=== PATIENT | female | born 1940 | race Caucasian/White ===

== ENCOUNTER → 2017-12-20 | Outpatient (CLI) | payer MEDICARE, OTHER ==
[~2017-12-20] MED LIST: AMLODIPINE BESYL5 MG PO; ASPIRIN EC81 MG PO; DYAZIDE 37.5-21 EACH PO; Flonase; HYDROCODON-ACE1 EA15 PO; INDOCIN25 MG/5 ML PO; K-TAB10 MEQ PO; LIPITOR10 MG PO; LOVASTATIN40 MG PO; NORVASC5 MG PO; PANTOPRAZOLE SO20 MG; PANTOPRAZOLE SO40 MG PO; PLAVIX75 MG PO; SINGULAIR10 MG PO; TRIAMTERENE-HCTZ1 EA PO; ZETIA10 MG PO
== END ==
LOC: RAD 12:02
PROVIDERS: ATTEND Specialist
DX: M79.661 Pain in right lower leg (principal); R60.9 Edema, unspecified
CPT/HCPCS: 93971

== ENCOUNTER 2018-01-14 14:57 | Outpatient (RCR) | payer MEDICARE, OTHER | END 2018-01-19 | LOC: PT 14:57 | PROVIDERS: ATTEND Specialist | DX: M17.11 Unilateral primary osteoarthritis, right knee (principal); M25.561 Pain in right knee; M25.661 Stiffness of right knee, not elsewhere classified; R26.2 Difficulty in walking, not elsewhere classified; M62.81 Muscle weakness (generalized) ==

== ENCOUNTER 2018-01-30 13:56 | Outpatient (RCR) | payer MEDICARE, OTHER | END 2018-02-18 | LOC: PT 13:56 | PROVIDERS: ATTEND Specialist | DX: M17.11 Unilateral primary osteoarthritis, right knee (principal) | CPT/HCPCS: 97139 ==

== ENCOUNTER 2018-05-22 14:26 | Observation (INO) | payer MEDICARE, OTHER ==
[~2018-05-22] VITALS: Ht 165.1 cm; Wt 83.9 kg
[2018-05-22 15:11] LABS: BASOPHILS % 0.3 % (0.0-1.0); EOSINOPHILS # (AUTO) 0.1 (0.0-0.4); EOSINOPHILS % 1.2 % (0.0-6.0); HEMOGLOBIN 13.2 g/dL (12.0-16.0); LYMPHOCYTES # (AUTO) 1.9 (1.0-3.2); LYMPHOCYTES % 27.8 % (18.0-39.1); MEAN CORPUSCULAR HEMOGLOBIN 28.5 pg (28-32); MEAN CORPUSCULAR HGB CONC 32.2 g/dL (31-35); MEAN CORPUSCULAR VOLUME 88.6 fL (81-99); MONOCYTES # (AUTO) 0.3 (0.2-0.8); MONOCYTES % 4.8 % (4.4-11.3); NEUTROPHILS # (AUTO) 4.6 (2.1-6.9); NEUTROPHILS % 65.6 % (38.7-80.0); PLATELET COUNT 239 x10e3/uL (140-360); RED BLOOD COUNT 4.63 x10e6/uL (3.6-5.1); RED CELL DISTRIBUTION WIDTH 13.5 % (11.7-14.4)
[2018-05-22 15:16] LABS: INR 0.91; PROTHROMBIN TIME 11.5 seconds (11.9-14.5)
[2018-05-22 15:17] LABS: PARTIAL THROMBOPLASTIN TIME 26.8 seconds (23.8-35.5)
[2018-05-22 15:18] LABS: CLARITY,URINE SL CLOUDY (CLEAR); COLOR,URINE YELLOW (YELLOW)
[2018-05-22 15:19] LABS: BILIRUBIN,URINE NEGATIVE (NEGATIVE); KETONES,URINE NEGATIVE (NEGATIVE); LEUKOCYTE ESTERASE ,URINE NEGATIVE (NEGATIVE); NITRITE,URINE NEGATIVE (NEGATIVE); PROTEIN,URINE DIPSTICK NEGATIVE (NEGATIVE); URINE UROBILINOGEN 0.2 mg/dL (0.2 - 1)
[2018-05-22 15:25] LABS: ALBUMIN 3.8 g/dL (3.5-5.0); ANION GAP 16.6 mmol/L (8-16); CALCIUM 9.4 mg/dL (8.4-10.2); CREATININE, SERUM 1.17 mg/dL (0.57-1.11); POTASSIUM 3.6 mmol/L (3.5-5.1)
[2018-05-22 15:28] LABS: EPITHELIAL CELLS,URINE RARE /LPF; RBC,URINE 0-5 /HPF (0-5)
[2018-05-22 15:31] LABS: CREATINE KINASE MB 1.5 ng/mL (0-5.0)
--- NOTE | 2018-05-22 15:46 | Diagnostic Imaging Report ---
PROCEDURE: A single AP view of the chest. COMPARISON: 08/06/16 INDICATIONS: CHEST PAIN LEFT SIDE TODAY FINDINGS: Lines/tubes: None. Lungs: The lungs are well inflated and clear. There is no evidence of pneumonia or pulmonary edema. Pleura: There is no pleural effusion or pneumothorax. Heart and mediastinum: The heart and the mediastinum are unremarkable. Bones: No acute bony abnormality. IMPRESSION: No acute cardiopulmonary disease. Dictated by: Michael Mancia M.D. on 05/22/2018 at 15:51 Electronically approved by: Michael Mancia M.D. on 05/22/2018 at 15:51
[2018-05-22] MEDS ORDERED: MORPHINE SULFATE 2 MG/ML SYR IV PRN (17:30)
[2018-05-22] MEDS ORDERED: ONDANSETRON HCL INJ 2 MG/ML VIAL IV PRN (17:30)
[2018-05-22] MEDS ORDERED: ASPIRIN 81 MG CHEW TAB PO ONE (17:30)
[2018-05-22 20:14] VITALS: BP_SYST 121; BP_SYST 136; BP_DIAS 58; BP_DIAS 64
[2018-05-22 20:17] VITALS: BP 121/58
[2018-05-22 20:22] VITALS: BP 121/58
[2018-05-23] VITALS: BP 111/56
[2018-05-23 01:07] LABS: CREATINE KINASE MB 1.1 ng/mL (0-5.0)
[2018-05-23 04:00] VITALS: BP 115/56
[2018-05-23 05:34] LABS: BASOPHILS % 0.6 % (0.0-1.0); EOSINOPHILS # (AUTO) 0.1 (0.0-0.4); EOSINOPHILS % 2.3 % (0.0-6.0); HEMATOCRIT 37.7 % (34.2-44.1); HEMOGLOBIN 12.1 g/dL (12.0-16.0); LYMPHOCYTES # (AUTO) 1.6 (1.0-3.2); LYMPHOCYTES % 34.6 % (18.0-39.1); MEAN CORPUSCULAR HEMOGLOBIN 28.2 pg (28-32); MEAN CORPUSCULAR HGB CONC 32.1 g/dL (31-35); MEAN CORPUSCULAR VOLUME 87.9 fL (81-99); MONOCYTES # (AUTO) 0.4 (0.2-0.8); MONOCYTES % 8.2 % (4.4-11.3); NEUTROPHILS # (AUTO) 2.6 (2.1-6.9); NEUTROPHILS % 54.1 % (38.7-80.0); PLATELET COUNT 193 x10e3/uL (140-360); RED BLOOD COUNT 4.29 x10e6/uL (3.6-5.1); RED CELL DISTRIBUTION WIDTH 13.7 % (11.7-14.4)
[2018-05-23 05:57] LABS: CREATINE KINASE MB 0.8 ng/mL (0-5.0)
[2018-05-23 06:20] LABS: BLOOD UREA NITROGEN 9 mg/dL (7-26); BUN/CREATININE RATIO 11 (6-25); CALCIUM 9.3 mg/dL (8.4-10.2); CARBON DIOXIDE 27 mmol/L (22-29); CHLORIDE 106 mmol/L (98-107); CHOL/HDL RATIO 3.8 (3.0-3.6); CHOLESTEROL 184 MD/DL (0-199); CREATININE, SERUM 0.79 mg/dL (0.57-1.11); EST GLOMERULAR FILTRATION RATE > 60 ML/MIN (60-); GLUCOSE 128 mg/dL (74-118); HDL CHOLESTEROL 48 MG/DL (40-60); LDL CHOLESTEROL 115 MG/DL (60-130); SODIUM 144 mmol/L (136-145); TRIGLYCERIDES 104 MG/DL (0-149)
[2018-05-23 07:51] VITALS: BP 133/62
--- NOTE | 2018-05-23 08:14 | Diagnostic Imaging Report ---
PROCEDURE: A single AP view of the chest. COMPARISON: Chest radiograph 08/06/16 INDICATIONS: CHEST PAIN FINDINGS: Lines/tubes: None. Lungs: The lungs are moderately inflated. There is no evidence of pneumonia or pulmonary edema. Pleura: There is no pleural effusion or pneumothorax. Heart and mediastinum: The cardiomediastinal silhouette is unremarkable. Bones: No acute bony abnormality. IMPRESSION: No acute cardiopulmonary disease. Dictated by: YAHAIRA BENNETT M.D. on 05/23/2018 at 8:19 Electronically approved by: YAHAIRA BENNETT M.D. on 05/23/2018 at 8:19
[2018-05-23] MEDS ORDERED: ASPIRIN 81 MG ENTERIC COATED PO SCH (09:00)
[2018-05-23] MEDS: CLOPIDOGREL BISULFATE 75 MG TAB PO SCH ×2 (09:00→09:02)
[2018-05-23] MEDS: ASPIRIN 81 MG ENTERIC COATED PO SCH ×2 (09:00→09:02)
[2018-05-23] MEDS ORDERED: AMLODIPINE BESYLATE 5 MG TAB PO SCH (09:00)
[2018-05-23] MEDS ORDERED: PANTOPRAZOLE SOD 40 MG TABEC PO SCH (09:00)
--- NOTE | 2018-05-23 10:23 | History and Physical ---
SHORTSTAY CHIEF COMPLAINT: "I hurt everywhere including my chest." ADMIT DIAGNOSES: 1. Atypical chest pain. 2. Acute renal failure. 3. Heat exposure. 4. Statin-induced myalgias. 5. Coronary artery disease. HPI: This is a 77-year-old white woman, who presents to [facility] Emergency Room with complaints of vague left-sided chest pain as well as diffuse body aches. Patient states on day of admission she was in closed building that did not have air condition. Patient states she became overheated which caused her to experience nausea, vomiting, and diarrhea. Patient states that for several months she has had diffuse muscle aches, but yesterday she experienced achiness in the left side of her chest. Patient is concerned because in 2014 she had a coronary stent placed. A 12-lead EKG done in the emergency room did not reveal any acute ischemic changes. Patient has had 3 sets of cardiac enzymes done during this hospitalization, which the results are not consistent with acute myocardial ischemia or infarction. On admission, patient's BUN and creatinine were 14 and 1.17 respectively. On day of discharge, BUN and creatinine were 9 and 0.79 respectively. During this hospitalization, patient was found to have a B-type natriuretic peptide level of 31. Also, during this hospitalization, patient was found to have LDL cholesterol of 115 mg/dL. Patient had chest x-ray done in the emergency room, which was completely normal. Patient states that in the past she could not take pravastatin and simvastatin because of statin-induced myalgias. Patient is currently on atorvastatin 10 mg every night. The patient states that previously she was on rosuvastatin, which she tolerated quite well, but for reasons unknown to her, her rubber tire curer namely, Dr. Ortega changed her to atorvastatin 10 mg every night. REVIEW OF SYSTEMS: GENERAL: Patient complains of chronic muscle aches. Denies any fever or chills. States her weight is stable. HEENT: No headaches. No visual changes. CARDIOVASCULAR/RESPIRATORY: States that yesterday she began experiencing left-sided chest discomfort. No shortness of breath. No cough. GI: She had nausea, vomiting, and diarrhea yesterday when she was exposed to excessive heat. : No UTI symptoms. NEUROMUSCULAR: Complains of diffuse muscle aches. ALLERGIES: 1. SULFA ANTIBIOTICS. 2. PRAVASTATIN. 3. SIMVASTATIN. FAMILY HISTORY: Multiple family members with coronary artery disease. SOCIAL HISTORY: This woman is single. She lives at home, but her adult son lives with her. No history of tobacco or alcohol use. She is retired. PAST MEDICAL HISTORY: 1. Colon cancer, in remission. 2. Coronary artery disease (coronary stent placed in 2014). 3. Hypertensive heart disease. 4. Mild obesity. 5. Hyperlipidemia. 6. Statin-induced myalgias. 7. GERD. SURGICAL HISTORY: 1. Hysterectomy. 2. Right lumpectomy. 3. Right colonic mass (hepatic flexure) resected in 2015. CURRENT MEDICATIONS: 1. Amlodipine 5 mg daily. 2. Aspirin 81 mg daily. 3. Atorvastatin 10 mg nightly. 4. Clopidogrel 75 mg daily. 5. Pantoprazole 40 mg daily. 6. Triamterene/hydrochlorothiazide 37.5 and 25 once daily. PHYSICAL EXAMINATION: GENERAL: She is awake, alert, and fully oriented, in no distress. Very pleasant with exam. Her adult son is at bedside. VITAL SIGNS: Height is 5 feet 5 inches. Weight is 185 pounds. Calculated body mass index is 30. Blood pressure 130/62, pulse 84, respiratory rate 18, temperature 96.8, oxygen saturation 97% on room air. INTEGUMENT: Skin is warm and dry. No pallor, jaundice, or diaphoresis. HEENT: Anicteric sclerae with moist mucous membranes. NECK: Supple. CARDIOVASCULAR: Regular rate and rhythm. LUNGS: No rales, no rhonchi, no wheeze. ABDOMEN: Benign. EXTREMITIES: No edema or deformity. NEURO: Intact. DISCHARGE DIAGNOSES: 1. Atypical chest pain, resolved. 2. Acute renal failure, resolved. 3. Statin-induced myalgias. 4. Hypertensive heart disease. 5. Coronary artery disease. PLAN: 1. Will ask cardiology to see the patient prior to discharge. 2. Patient will follow up with her rubber tire curer, namely Dr. Ortega within 1 to 2 weeks. 3. Recommend that patient continue atorvastatin 10 mg every night, but perhaps she can change to rosuvastatin in the near future since this medication apparently did not cause her to experience myalgias. 4. Will stop Dyazide because of patient's recent acute renal failure. 5. Recommend that patient stay adequately hydrated. 6. Recommend that patient not expose herself to excessive heat. I spent 45 minutes in the care of the patient. Job#: [id number]
[2018-05-23 11:31] VITALS: BP 125/59
--- NOTE | 2018-05-23 19:28 | Consultation ---
DATE OF CONSULTATION: May 23, 2018 CARDIOLOGY CONSULTATION REASON FOR CONSULTATION: Chest pain. CHIEF COMPLAINT: "I just felt very hot, weak and had abdominal pain and diarrhea after being outside too long." HPI: The patient is a 77-year-old female with a history of known CAD, status post PCI several years ago, done by outside rotary drill operator, who was in otherwise good health when yesterday she was shopping in the mall and suddenly started feeling hot. She walked to her car, but again outside in the heat. By the time she got to her car, she was s having severe body aches and just felt weak all over and had an episode of abdominal pain and diarrhea when she got home. Due to this, she was concerned and presented to the ER. Amongst her other complaints, she also complained about chest discomfort. Her chest pain was only associated while she was having the sensation of generalized muscle pains and weakness, not associated with exertion, not relieved by rest, 8/10 in severity. This resolved completely after receiving some IV fluids and rehydration. REVIEW OF SYSTEMS: A 10-point review of systems was performed was negative otherwise as is indicated in history of present illness. PAST MEDICAL HISTORY 1. Colon cancer in remission. 2. Coronary artery disease, status post PCI in 2014. 3. Hypertension. 4. Obesity. 5. Hyperlipidemia. 6. Stain-induced myalgias. 7. GERD. FAMILY HISTORY: Multiple family members with history of CAD, status post stents, bypass surgery and MIs. SOCIAL HISTORY: No history of tobacco or alcohol use. No drug use. Retired. PHYSICAL EXAMINATION VITAL SIGNS: Temperature 96.9. Pulse 76. Respiratory rate 18. Blood pressure 128/59. Satting 97% on room air. EYES: Conjunctivae are clear. EARS, NOSE, MOUTH AND THROAT: Normal mucosa. No pallor or bleeding. NECK: No jugular venous distention. MUSCULOSKELETAL: Normal muscle tone and strength. No atrophy or abnormal movements. EXTREMITIES: No clubbing or cyanosis. SKIN: No venous stasis changes or ulcers. GENERAL: Well-developed, well-nourished, obese female. CARDIOVASCULAR: PMI nondisplaced. Regular S1 and S2. No murmur, rubs or gallops. Normal carotid pulses. Palpable pedal pulses. No peripheral edema or varicosities. RESPIRATORY: No respiratory distress. Lungs are clear to auscultation bilaterally. ABDOMEN: Soft, nontender. No masses. NEURO AND PSYCH: Alert and oriented to person, place and time. Normal affect. MEDICATIONS: Current inpatient and outpatient medication regimen reviewed. LABS: All lab data reviewed. IMAGING: Data reviewed. EKG: Reviewed, essentially normal. ASSESSMENT 1. Atypical chest pain. 2. Dehydration. 3. History of coronary artery disease, status post stent placement in 2014. PLAN: Patient's chest pain is very, very atypical, likely related to heat exhaustion and not related to any cardiovascular causes. She has already been ruled out for UT. She had a recent stress test done earlier this year which was completely normal per her rotary drill operator. At this point, I do not recommend any further cardiovascular evaluation or studies. She is free to be discharged from a cardiovascular standpoint, and she can follow up with her outpatient rotary drill operator, Dr. Ortega, as needed. Thank you for this consult. Job#: [id number]
[2018-05-23] MEDS ORDERED: ATORVASTATIN 10 MG TAB PO SCH (21:00)
== END 2018-05-23 11:55 | disposition home or self-care (01) ==
LOC: ER 14:26 → ERHOLD 17:47 → IMCU 20:24
PROVIDERS: ADMIT Internal Medicine; ATTEND Internal Medicine
DX: R07.89 Other chest pain (principal); N17.9 Acute kidney failure, unspecified; M79.1 Myalgia; I25.10 Atherosclerotic heart disease of native coronary artery without angina pectoris; Z95.5 Presence of coronary angioplasty implant and graft; Z88.2 Allergy status to sulfonamides; Z88.8 Allergy status to other drugs, medicaments and biological substances; Z82.49 Family history of ischemic heart disease and other diseases of the circulatory system; Z85.038 Personal history of other malignant neoplasm of large intestine; I11.9 Hypertensive heart disease without heart failure; E78.5 Hyperlipidemia, unspecified; K21.9 Gastro-esophageal reflux disease without esophagitis; T46.6X5A Adverse effect of antihyperlipidemic and antiarteriosclerotic drugs, initial encounter; T67.8XXA Other effects of heat and light, initial encounter; E86.0 Dehydration; X30.XXXA Exposure to excessive natural heat, initial encounter; Y93.89 Activity, other specified; Y92.59 Other trade areas as the place of occurrence of the external cause
CPT/HCPCS: 36415 ×2; 71045 ×2; 80048; 80053; 80061; 81001; 82550 ×2; 82553 ×2; 83880; 84484 ×2; 85025 ×2; 85610; 85730; 93005 ×2; 93306; 99284; G0378 ×2; S0164

== ENCOUNTER → 2018-07-23 | Outpatient (CLI) | payer MEDICARE, OTHER ==
--- NOTE | 2018-07-23 18:24 | Cardiology Report ---
DATE OF STUDY: July 23, 2018 DOPPLER SCAN OF LOWER EXTREMITY VEINS ATTENDING PHYSICIAN: Dr. Vicente Ortega. The lower extremity veins were interrogated using the duplex scanning method. The veins were compressible. There was no definite deep venous thrombosis. CONCLUSION: No definite deep venous thrombosis seen involving the major veins of the lower extremities bilaterally. Job#: [id number] EV cc:VICENTE ORTEGA MD
== END ==
LOC: RAD 13:52
PROVIDERS: ATTEND Internal Medicine Cardiovascular Disease
DX: M79.89 Other specified soft tissue disorders (principal)
CPT/HCPCS: 93970

== ENCOUNTER 2018-11-21 07:19 | Emergency (ER) | payer MEDICARE, OTHER ==
[~2018-11-21] VITALS: Ht 165.1 cm; Wt 91.2 kg
--- OUTSIDE RECORDS SUMMARY | 2018-11-21 07:22 | XMS REPORT | Clinical Summary ---
Author Author ISABELLE [facility] Address Unknown Phone Unavailable Care Team Providers Care Validation Leader Name Role Phone Riley De La Vega PCP Allergies Comments Active Allergy Reactions Severity Noted Date Morphine Nausea And 03/04/1985 Vomiting Muscular pain Pravastatin Other (See 03/08/2016 Comments) unknown Sulfamethoxazole-Trimetho 06/23/2016 prim Sulfa (Sulfonamide Swelling Medium 03/03/2015 Antibiotics) Medications End Date Status Medication Sig Dispensed Refills Start Date Active amLODIPine (NORVASC) 5 MG Take 5 mg by 0 tablet mouth daily. Active aspirin 81 MG EC tablet Take 81 mg by 0 mouth daily. Active atorvastatin (LIPITOR) 10 Take 10 mg by 0 MG tablet mouth daily. Active clopidogrel (PLAVIX) 75 Take 75 mg by 0 mg tablet mouth daily. Active pantoprazole (PROTONIX) Take 40 mg by 0 40 MG tablet mouth daily. Active acetaminophen (TYLENOL) Take 500 mg 0 500 MG tablet by mouth every 6 (six) hours as needed for Pain. Active triamterene-hydroCHLOROth Take 1 0 iazide (DYAZIDE) 37.5-25 capsule by mg per capsule mouth every morning. Active COQ10, UBIQUINOL, ORAL Take by 0 mouth. Active Problems Problem Noted Date S/P biopsy 06/28/2016 GI bleed 03/08/2016 Chest pain 03/03/2015 Encounters Care Team Description Date Type Specialty Tracy Nunez MD UPPER ENDOSCOPY,MUCOSAL RESECTION 01/17/2018 Surgery Gastroenterology SerBrigitte shannon, PAID SEARCH MARKETING ANALYST 01/17/2018 Anesthesia Gastroenterology Event Tracy Nunez MD 01/17/2018 Hospital Gastroenterology Encounter Resource, [employer] Preadmit Phone 01/16/2018 Hospital Pre-Admission Testing Encounter after 11/20/2017 Social History Date Tobacco Use Types Packs/Day Years Used Passive Smoke Exposure - Never Smoker Smokeless Tobacco: Never Used Alcohol Use Drinks/Week oz/Week Comments No Sex Assigned at Date Recorded Not on file Industry Job Start Date Occupation Not on file Not on file Not on file Travel End Travel History Travel Start No recent travel history available. Last Filed Vital Signs Time Taken Vital Sign Reading 01/17/2018 10:50 AM CDT Blood Pressure 108/49 01/17/2018 10:50 AM CDT Pulse 76 01/17/2018 10:35 AM CDT Temperature 36.1 C (97 F) 01/17/2018 10:50 AM CDT Respiratory Rate 16 01/17/2018 10:50 AM CDT Oxygen Saturation 97% - Inhaled Oxygen - Concentration 01/17/2018 8:42 AM CDT Weight 91.4 kg (201 lb 8 oz) 01/17/2018 8:42 AM CDT Height 167.6 cm (5' 6") 01/17/2018 8:42 AM CDT Body Mass Index 32.52 Plan of Treatment Not on file Implants Device Identifier Shelf Expiration Date Model / Serial / Lot Implanted Type Area Manufactur er 11/28/2017 [id number] 15 / / [id number] Radha Villatoro Ot [employer] Implanted: Qty: 1 on 03/03/2015 [employer] ES Procedures Comments Procedure Name Priority Date/Time Associated Diagnosis REPORT OF PROCEDURE - 01/17/2018 ENDOSCOPY URL 10:08 AM CDT UPPER ENDOSCOPY,MUCOSAL 01/17/2018 Gastric polyp RESECTION 10:00 AM CDT TISSUE EXAM AP Routine 01/17/2018 9:50 AM CDT after 11/20/2017 Results * REPORT OF PROCEDURE - ENDOSCOPY URL (01/17/2018 10:08 AM CDT) Narrative Performed At * Tissue Exam (01/17/2018 9:50 AM CDT) Case Report Surgical Pathology [facility] Report [facility] Case: [id number] Authorizing Provider:Tracy Nunez MDCollected: 01/17/2018 0950 Ordering Location: [facility] Endoscopy Received: 01/17/2018 1535 Services Pathologist: Ashley Ramirez MD Specimen:Polyp, Gastric, gastric polyps x 2 removed by Endoscopic Mucosal resection DIAGNOSIS A. GASTRIC POLYP, ENDOSCOPIC [facility] MUCOSAL RESECTION: [facility] - GASTRIC HYPERPLASTIC POLYP - NEGATIVE FOR MALIGNANCY - NO HELICOBACTER PYLORI MICROORGANISMS IDENTIFIED CC/pl Signing Pathologist Direct Phone Line: [phone] CPT Code(s) 55718; 05917 [facility] CLINICAL HISTORY Gastric polyp [facility] SPECIMEN SOURCE Gastric polyp [facility] GROSS DESCRIPTION Received in formalin labeled [facility] "polyp, gastric" are two [facility] irregular, pink-galvez, polypoid fragments of soft tissue measuring 1.0 x 0.6 x 0.5 cm and 1.3 x 1.0 x 0.7 cm. The resection margins are inked, the specimens are bisected and entirely submitted in cassettes A1-A2 with one polyp in each cassette. DB/ew MICROSCOPIC DESCRIPTION The gastric polyp shows [facility] polypoid antrum-type gastric [facility] mucosa with marked foveolar hyperplasia and mild lymphoplasmacytic infiltrate in the lamina propria, and focal surface granulation tissue. The finding is compatible with a hyperplastic polyp with focal ulcer. No dysplasia or carcinoma is identified. The Warthin-Starry stain stain is negative for Helicobacter Pylori-like organisms. SPECIAL STUDIES The following special studies [facility] were performed on this case [facility] and the interpretation is incorporated in the diagnostic report above: A. Warthin-Starry stain- Negative Specimen Tissue - Polyp, Gastric Performing Organization Address City/State/Zipcode Phone Number [facility] [address] [place] [address] MED[facility] after 11/20/2017 Insurance Payer Benefit Subscriber ID Type Phone Address Plan / Group MEDICARE MEDICARE A xxxxxxxxxx Medicare B OTHER-COMMERCIAL GENERIC xxxxxxxxxx COMMERCIAL Advance Directives For more information, please contact: [address] [address] Date Inactivated Comments Code Status Date Activated 03/10/2016 9:54 PM Full Code 03/08/2016 3:07 PM This code status was determined by: Patient 03/05/2015 5:32 PM Full Code 03/03/2015 9:09 AM This code status was determined by: Patient
[2018-11-21] MEDS ORDERED: NITROGLYCERIN 2% OINT 1 GM PKT ONE (07:36)
[2018-11-21] MEDS ORDERED: NITROGLYCERIN 2% OINT 1 GM PKT TOP ONE (07:45)
[2018-11-21] MEDS ORDERED: ASPIRIN 81 MG CHEW TAB PO ONE (07:45)
[2018-11-21 08:01] LABS: BASOPHILS % 0.4 % (0.0-1.0); EOSINOPHILS # (AUTO) 0.1 (0.0-0.4); EOSINOPHILS % 1.7 % (0.0-6.0); HEMATOCRIT 38.8 % (34.2-44.1); HEMOGLOBIN 12.2 g/dL (12.0-16.0); LYMPHOCYTES % 42.1 % (18.0-39.1); MEAN CORPUSCULAR HEMOGLOBIN 26.9 pg (28-32); MEAN CORPUSCULAR HGB CONC 31.4 g/dL (31-35); MEAN CORPUSCULAR VOLUME 85.5 fL (81-99); MONOCYTES # (AUTO) 0.2 (0.2-0.8); NEUTROPHILS # (AUTO) 2.4 (2.1-6.9); NEUTROPHILS % 50.6 % (38.7-80.0); PLATELET COUNT 204 x10e3/uL (140-360); RED BLOOD COUNT 4.54 x10e6/uL (3.6-5.1); RED CELL DISTRIBUTION WIDTH 14.2 % (11.7-14.4)
--- NOTE | 2018-11-21 08:04 | NUR ---
PT STATES DENIES TAKING BLOOD PRESSURE MEDS THIS MORNING
[2018-11-21 08:21] LABS: ALANINE AMINOTRANSFERASE 10 IU/L (0-55); ALBUMIN 3.5 g/dL (3.5-5.0); ALBUMIN/GLOBULIN RATIO 1.2 (0.8-2.0); ALKALINE PHOSPHATASE 106 IU/L (40-150); BLOOD UREA NITROGEN 10 mg/dL (7-26); BUN/CREATININE RATIO 14 (6-25); CARBON DIOXIDE 20 mmol/L (22-29); CHLORIDE 106 mmol/L (98-107); CREATINE KINASE 58 IU/L (29-168); CREATININE, SERUM 0.73 mg/dL (0.57-1.11); EST GLOMERULAR FILTRATION RATE > 60 ML/MIN (60-); GLUCOSE 131 mg/dL (74-118); SODIUM 138 mmol/L (136-145)
[2018-11-21 08:26] LABS: BILIRUBIN,URINE NEGATIVE (NEGATIVE); CLARITY,URINE HAZY (CLEAR); COLOR,URINE YELLOW (YELLOW); KETONES,URINE NEGATIVE (NEGATIVE); LEUKOCYTE ESTERASE ,URINE NEGATIVE (NEGATIVE); NITRITE,URINE NEGATIVE (NEGATIVE); PROTEIN,URINE DIPSTICK NEGATIVE (NEGATIVE); URINE UROBILINOGEN 0.2 mg/dL (0.2 - 1)
[2018-11-21 08:39] LABS: EPITHELIAL CELLS,URINE RARE /LPF; HYALINE CASTS 0-1 (0-1); MUCUS,URINE RARE (RARE); RBC,URINE 0-5 /HPF (0-5)
[2018-11-21 08:41] LABS: INR 0.85; PARTIAL THROMBOPLASTIN TIME 26.9 seconds (23.8-35.5); PROTHROMBIN TIME 12.4 seconds (11.9-14.5)
--- NOTE | 2018-11-21 09:48 | NUR ---
pt states history of PVC'S
--- NOTE | 2018-11-21 10:03 | NUR ---
PT STATES RELIEF NITRO STATES PAIN IS 0/10
[2018-11-21] MEDS ORDERED: NAPROXEN250 MG PO (11:00)
[2018-11-21] MEDS ORDERED: LIDOCAINE 5% PATCH TP SCH ×2 (11:15)
[2018-11-21 11:29] VITALS: BP 129/71
--- NOTE | 2018-11-21 14:53 | Diagnostic Imaging Report ---
EXAMINATION: CHEST SINGLE (PORTABLE) INDICATION: Chest pain. COMPARISON: Chest radiograph 05/23/2018. FINDINGS: TUBES and LINES: None. LUNGS: Lungs are well inflated. Mild patchy left basilar opacity, likely atelectasis. There is no evidence of pneumonia or pulmonary edema. PLEURA: No pleural effusion or pneumothorax. HEART AND MEDIASTINUM: The cardiomediastinal silhouette is unremarkable. BONES AND SOFT TISSUES: No acute osseous lesion. Soft tissues are unremarkable. UPPER ABDOMEN: No free air under the diaphragm. IMPRESSION: No acute radiographic abnormality. Mild patchy left basilar opacity, likely atelectasis. Signed by: Dr. Montserrat Garcia MD on 11/21/2018 2:50 PM
== END 2018-11-21 11:45 | disposition home or self-care (01) ==
LOC: ER 07:19
DX: R07.9 Chest pain, unspecified (principal); I10 Essential (primary) hypertension; E78.5 Hyperlipidemia, unspecified; I25.10 Atherosclerotic heart disease of native coronary artery without angina pectoris; Z85.038 Personal history of other malignant neoplasm of large intestine; Z95.5 Presence of coronary angioplasty implant and graft; Z98.0 Intestinal bypass and anastomosis status
CPT/HCPCS: 36415; 71045; 80053; 81001; 82550; 82553; 83880; 84484; 85025; 85610; 85730; 93005; 99284

== ENCOUNTER → 2019-03-05 | Outpatient (CLI) | payer MEDICARE, OTHER ==
[~2019-03-05] MED LIST changes: +NAPROXEN250 MG PO
--- NOTE | 2019-03-06 08:45 | Diagnostic Imaging Report ---
#[id number] - MGDXBIL #BILATERAL DIGITAL DIAGNOSTIC MAMMOGRAM WITH CAD: 03/05/2019 Comparison is made to exams dated: 07/02/2017 mammogram - [facility], 04/27/2016 mammogram and 02/09/2016 mammogram - [facility]. Current study contains 6 films. There are scattered fibroglandular elements in both breasts. Current study was also evaluated with a Computer Aided Detection (CAD) system. There is a 1.4 cm mass with a spiculated margin in the left breast at 1 o'clock middle depth. Clips in the right breast are present. Scattered calcifications in both breasts are present. There is also vascular calcification present. No other significant masses, calcifications, or other findings are seen in either breast. IMPRESSION: HIGHLY SUGGESTIVE OF MALIGNANCY The mass in the left breast is highly suggestive of malignancy. A biopsy is recommended. A phone call was made to the physician's office and the case was discussed with Dr. Maynard. The biopsy options were discussed with the patient and she would prefer a needle localization and surgical excision as she had a previous bad experience with a right breast stereotactic biopsy. An ultrasound will also be performed today. Pierre Doss Jr., D.O. cw/:03/05/2019 15:23:54 Glove Turner And Former: Lori YEH)(Frantz), [facility] letter sent: Biopsy Required Mammogram BI-RADS: 5 Highly suggestive of malignancy
--- NOTE | 2019-03-06 08:45 | Diagnostic Imaging Report ---
#[id number] - USBRELIMLT ULTRASOUND OF THE LEFT BREAST : 03/05/2019 Comparison is made to exam dated: 03/05/2019 mammogram - [facility]. Color flow and real-time ultrasound were performed on the left breast. There is an irregular mass in the left breast at 1 o'clock middle depth 3 cm from the nipple measuring 1.2 x 05 x 0.9 cm. This mass is poorly visulized except with tissue harmonics. This irregular mass displays posterior acoustic shadowing. IMPRESSION: HIGHLY SUGGESTIVE OF MALIGNANCY - FOLLOW-UP RECOMMENDED The irregular mass in the left breast is highly suggestive of malignancy. A phone call was made to the physician's office. The patient was notified of the need for a biopsy and the methods of biopsy were discussed with her. Pierre Doss Jr., D.O. cw/:03/05/2019 15:29:54 Facility Service Associate: Marie Cristobal RDMS, [facility] letter sent: Biopsy Required Ultrasound BI-RADS: 5 Highly suggestive of malignancy
== END ==
LOC: MAMMO 09:52
PROVIDERS: ATTEND Internal Medicine Medical Oncology
DX: N64.4 Mastodynia (principal)
CPT/HCPCS: 77066

== ENCOUNTER → 2019-07-07 | Day surgery (SDC) | payer MEDICARE, OTHER ==
[2019-07-01 13:01] LABS: BASOPHILS % 0.3 % (0.0-1.0); EOSINOPHILS # (AUTO) 0.1 (0.0-0.4); EOSINOPHILS % 2.1 % (0.0-6.0); HEMOGLOBIN 11.2 g/dL (12.0-16.0); LYMPHOCYTES # (AUTO) 2.1 (1.0-3.2); LYMPHOCYTES % 33.9 % (18.0-39.1); MEAN CORPUSCULAR HEMOGLOBIN 25.2 pg (28-32); MEAN CORPUSCULAR HGB CONC 30.3 g/dL (31-35); MEAN CORPUSCULAR VOLUME 83.3 fL (81-99); MONOCYTES # (AUTO) 0.3 (0.2-0.8); MONOCYTES % 5.5 % (4.4-11.3); NEUTROPHILS # (AUTO) 3.5 (2.1-6.9); NEUTROPHILS % 57.9 % (38.7-80.0); PLATELET COUNT 249 x10e3/uL (140-360); RED BLOOD COUNT 4.44 x10e6/uL (3.6-5.1); RED CELL DISTRIBUTION WIDTH 15.6 % (11.7-14.4)
[2019-07-01 13:21] LABS: ALANINE AMINOTRANSFERASE 12 IU/L (0-55); ALBUMIN 3.6 g/dL (3.5-5.0); ALKALINE PHOSPHATASE 125 IU/L (40-150); ANION GAP 15.3 mmol/L (8-16); BLOOD UREA NITROGEN 9 mg/dL (7-26); BUN/CREATININE RATIO 11 (6-25); CALCIUM 9.4 mg/dL (8.4-10.2); CARBON DIOXIDE 26 mmol/L (22-29); CHLORIDE 105 mmol/L (98-107); CREATININE, SERUM 0.84 mg/dL (0.57-1.11); EST GLOMERULAR FILTRATION RATE > 60 ML/MIN (60-); GLUCOSE 159 mg/dL (74-118); POTASSIUM 4.3 mmol/L (3.5-5.1); SODIUM 142 mmol/L (136-145)
[~2019-07-07] MED LIST changes: +ACETAMINOPHEN 1000 MG/100 ML IV ONE; +ACETAMINOPHEN500 MG PO; +BUPIVACAINE 0.25%/EPI 30ML SDV INJ ONE; +CO Q-10200 MG PO; +DEXAMETHASONE SOD PHOS INJ 4 MG/ML VIAL ONE; +FENTANYL CITRATE/PF 100MCG/2 ML INJ ONE; +HYDROCODONE/APAP 7.5MG-325MG 1 EA TAB ONE; +KETOROLAC TROMETHAMINE 30 MG/ML VIAL ONE; +LIDOCAINE HCL 2% LOCAL INJ 5 ML SDV VIAL INJ ONE; +METOCLOPRAMIDE HCL 10 MG/2ML VIAL ONE; +MIDAZOLAM HCL 2 MG/2 ML VIAL ONE; +ONDANSETRON HCL INJ 2MG/ML 2ML 2 MG/ML VIAL ONE; +PROPOFOL IV EMULSION 10 MG/ML 20 ML VIAL ONE; +SEVOFLURANE INHAL SOLN 250 ML PEN BTL ONE
--- OUTSIDE RECORDS SUMMARY | 2019-07-07 07:31 | XMS REPORT | Clinical Summary ---
Author Author ISABELLE [facility] Address Unknown Phone Unavailable Care Team Providers Care Line Patroller Name Role Phone Riley De La Vega [...] 06/28/2016 GI bleed 03/08/2016 Chest pain 03/03/2015 Social History Date Tobacco Use Types Packs/Day Years Used Passive Smoke Exposure - Never Smoker Smokeless Tobacco: Never Used Alcohol Use Drinks/Week oz/Week Comments No Sex Assigned at Date Recorded Not on file Industry Job Start Date Occupation Not on file Not on file Not on file Travel End Travel History Travel Start No recent travel history available. Last Filed Vital Signs Not on file Plan of Treatment Not on file Implants Device Identifier Shelf Expiration Date Model / Serial / Lot Implanted Type Area Manufactur er 11/28/2017 [id number] - 15 / / [id number] Radha Villatoro Otw [employer] Implanted: Qty: 1 on 03/03/2015 [employer] Results Not on fileafter 07/06/2018 Insurance Payer Benefit Subscriber ID Type Phone Address Plan / Group MEDICARE MEDICARE A xxxxxxxxxx Medicare B OTHER-COMMERCIAL GENERIC xxxxxxxxxx COMMERCIAL Advance Directives For more information, please contact: [facility] [address] [place] [address] Date Inactivated Comments Code Status Date Activated 03/10/2016 9:54 PM Full Code 03/08/2016 3:07 PM This code status was determined by: Patient 03/05/2015 5:32 PM Full Code 03/03/2015 9:09 AM This code status was determined by: Patient
--- NOTE | 2019-07-07 12:26 | Diagnostic Imaging Report ---
Lymphoscintigraphy Reason for Exam: Left breast cancer; scheduled for sentinel lymph node biopsy Radiopharmaceutical: Tc-99m filtered sulfur colloid 688 microcuries Report: The radiotracer was given as two separate injections intradermally at the edge of the left areola. Three focal areas of tracer accumulation are seen in the left axilla. No accumulation of tracer is seen in the midline of the chest or in the neck. Impression: Injection for sentinel lymph node mapping. Three sentinel lymph nodes are identified in the left axilla. Signed by: Dr. Lori Tobias M.D. on 07/07/2019 12:22 PM
[2019-07-07 13:30] VITALS: BP 134/72
--- NOTE | 2019-07-07 17:05 | Operative Report ---
DATE OF PROCEDURE: 07/07/2019 SURGEON: Lon Mendoza MD PREOPERATIVE DIAGNOSIS: Left breast cancer. POSTOPERATIVE DIAGNOSIS: Left breast cancer. OPERATION PERFORMED: Left axillary sentinel node biopsy with preoperative mapping. ANESTHESIA: General. COMPLICATIONS: None. ESTIMATED BLOOD LOSS: Minimal. DESCRIPTION OF PROCEDURE: With the patient lying in bed in the supine position, under good general anesthesia, the left breast and axilla were prepped with Betadine solution and draped in the usual manner. The patient had undergone a previous mapping of the sentinel node was actually two groups that were involved and they were near each other in the axilla and both of them could be targeted with the Neoprobe on the operating room table. An incision was then made at the base of the left axilla, carried down through the subcutaneous tissue and through the superficial fascia. The two areas in question were then identified, there were two nodes that were extremely hot, one with a count upwards of 1800, the other one was 1600; both of these were included in the specimen and the little fat pad that contained them was then removed. All bleeding points were either electrocoagulated or ligated with 2-0 Vicryl and divided. The specimen was sent for pathological examination. There were no other hot spots in the axilla after those two areas were removed. The whole area was thoroughly irrigated. Hemostasis was ascertained and the wound was then closed in layers. The superficial fascia was approximated with 2-0 Vicryl. The subcutaneous tissue was approximated with 2-0 and 3-0 Vicryl and the skin was closed with subcuticular 5-0 Vicryl. Benzoin, Steri-Strips, and dressings were applied. The sponge, lap, and needle counts were correct. The patient tolerated the procedure well and returned to the recovery room in stable condition. Lon Mendoza MD JLR/MODL /[id number]
== END | disposition home or self-care (01) ==
LOC: OR 07:22
PROVIDERS: ATTEND Surgery
DX: C50.912 Malignant neoplasm of unspecified site of left female breast (principal); I89.8 Other specified noninfective disorders of lymphatic vessels and lymph nodes; I25.10 Atherosclerotic heart disease of native coronary artery without angina pectoris; J45.909 Unspecified asthma, uncomplicated; I10 Essential (primary) hypertension; K44.9 Diaphragmatic hernia without obstruction or gangrene; Z88.6 Allergy status to analgesic agent; Z88.2 Allergy status to sulfonamides; Z88.8 Allergy status to other drugs, medicaments and biological substances; Z01.812 Encounter for preprocedural laboratory examination; Z79.02 Long term (current) use of antithrombotics/antiplatelets; Z79.82 Long term (current) use of aspirin; Z85.038 Personal history of other malignant neoplasm of large intestine; Z95.5 Presence of coronary angioplasty implant and graft
CPT/HCPCS: 36415; 38500; 78195; 80053; 85025; 88305; A9541; J0131; J1100; J1885; J2001; J2250; J2405; J2704; J2765; J3010; 88304

== ENCOUNTER → 2020-07-21 | Outpatient (CLI) | payer MEDICARE, OTHER ==
[~2020-07-21] MED LIST changes: -ACETAMINOPHEN 1000 MG/100 ML IV ONE; -BUPIVACAINE 0.25%/EPI 30ML SDV INJ ONE; -DEXAMETHASONE SOD PHOS INJ 4 MG/ML VIAL ONE; -FENTANYL CITRATE/PF 100MCG/2 ML INJ ONE; -HYDROCODONE/APAP 7.5MG-325MG 1 EA TAB ONE; -KETOROLAC TROMETHAMINE 30 MG/ML VIAL ONE; -LIDOCAINE HCL 2% LOCAL INJ 5 ML SDV VIAL INJ ONE; -METOCLOPRAMIDE HCL 10 MG/2ML VIAL ONE; -MIDAZOLAM HCL 2 MG/2 ML VIAL ONE; -ONDANSETRON HCL INJ 2MG/ML 2ML 2 MG/ML VIAL ONE; -PROPOFOL IV EMULSION 10 MG/ML 20 ML VIAL ONE; -SEVOFLURANE INHAL SOLN 250 ML PEN BTL ONE
--- NOTE | 2020-07-23 16:04 | Diagnostic Imaging Report ---
#[id number] - [id number] #BILATERAL DIGITAL DIAGNOSTIC MAMMOGRAM WITH CAD: 07/21/2020 Comparison is made to exams dated: 05/15/2019 localization, 03/05/2019 mammogram and 07/02/2017 mammogram - [facility]. There are scattered fibroglandular elements in both breasts. Current study was also evaluated with a Computer Aided Detection (CAD) system. There is a benign post surgical scar in the right breast at 12 o'clock anterior depth. There is a are post-surgical and post-treatment findings in the left breast at 1 o'clock middle depth status post lumpectomy and radiation. There is skin thickening and soft tissue edema consistent with post-treatment change. No other significant masses or calcifications are seen in either breast. IMPRESSION: PROBABLY BENIGN The post surgical and post-treatment findings in the left breast are probably benign. A follow-up in 6 months is recommended. A follow-up mammogram in 6 months is recommended to demonstrate stability. The patient has been or will be notified of the results. JUICE RAMIREZ M.D. kw/:07/23/2020 09:50:34 Worker'S Compensation Claims Examiner: Lori YEH)(Frantz), [facility] letter sent: Followup Recommended Mammogram BI-RADS: 3 Probably benign
== END ==
LOC: MAMMO 09:26
PROVIDERS: ATTEND Surgery
DX: N61.0 Mastitis without abscess (principal)
CPT/HCPCS: 77066

== ENCOUNTER → 2021-02-10 | Outpatient (CLI) | payer MEDICARE, OTHER | LOC: MAMMO 09:35 | PROVIDERS: ATTEND Surgery | DX: N61.0 Mastitis without abscess (principal) | CPT/HCPCS: 77066 ==

== ENCOUNTER → 2022-02-16 | Outpatient (CLI) | payer MEDICARE, OTHER | LOC: MAMMO 10:23 | PROVIDERS: ATTEND Surgery | DX: N61.0 Mastitis without abscess (principal) | CPT/HCPCS: 77066 ==

== ENCOUNTER → 2023-02-22 | Outpatient (CLI) | payer MEDICARE, OTHER | LOC: MAMMO 13:06 | PROVIDERS: ATTEND Surgery | DX: Z85.3 Personal history of malignant neoplasm of breast (principal) | CPT/HCPCS: 77066 ==

== ENCOUNTER 2023-08-09 05:55 | Emergency (ER) | payer MEDICARE, OTHER ==
[~2023-08-09] VITALS: Ht 165.1 cm; Wt 81.6 kg
[2023-08-09] MEDS ORDERED: ONDANSETRON HCL INJ 2MG/ML 2ML 2 MG/ML VIAL IV STA (06:37)
[2023-08-09] MEDS ORDERED: LACTATED RINGER'S 1,000 ML INJ SCH (06:45)
[2023-08-09 06:53] LABS: BASOPHILS % 0.2 % (0.0-1.0); EOSINOPHILS # (AUTO) 0.1 (0.0-0.4); EOSINOPHILS % 1.7 % (0.0-6.0); HEMATOCRIT 35.2 % (34.2-44.1); LYMPHOCYTES # (AUTO) 0.8 (1.0-3.2); LYMPHOCYTES % 18.4 % (18.0-39.1); MEAN CORPUSCULAR HEMOGLOBIN 24.4 pg (28-32); MEAN CORPUSCULAR HGB CONC 31.3 g/dL (31-35); MONOCYTES # (AUTO) 0.3 (0.2-0.8); MONOCYTES % 7.7 % (4.4-11.3); NEUTROPHILS % 71.8 % (38.7-80.0); PLATELET COUNT 214 x10e3/uL (140-360); RED BLOOD COUNT 4.51 x10e6/uL (3.6-5.1); RED CELL DISTRIBUTION WIDTH 16.5 % (11.7-14.4); WHITE BLOOD COUNT 4.14 x10e3/uL (4.8-10.8)
[2023-08-09 07:04] LABS: ALANINE AMINOTRANSFERASE 18 IU/L (0-55); ALBUMIN 3.5 g/dL (3.5-5.0); ALBUMIN/GLOBULIN RATIO 1.1 (0.8-2.0); ALKALINE PHOSPHATASE 81 IU/L (40-150); ANION GAP 15.4 mmol/L (8-16); BLOOD UREA NITROGEN 10 mg/dL (7-26); BUN/CREATININE RATIO 14 (6-25); CARBON DIOXIDE 23 mmol/L (22-29); CHLORIDE 108 mmol/L (98-107); CREATINE KINASE 36 IU/L (29-168); GLUCOSE 136 mg/dL (74-118); LIPASE 16 U/L (8-78); POTASSIUM 3.4 mmol/L (3.5-5.1); SODIUM 143 mmol/L (136-145)
[2023-08-09] MEDS ORDERED: IOPAMIDOL 370 MG/ML 100 ML INFUS..BTL INJ ONE (07:29)
[2023-08-09 07:45] LABS: CLARITY,URINE CLEAR (CLEAR); COLOR,URINE YELLOW (YELLOW); KETONES,URINE TRACE (NEGATIVE); LEUKOCYTE ESTERASE ,URINE SMALL (NEGATIVE); NITRITE,URINE NEGATIVE (NEGATIVE); PROTEIN,URINE DIPSTICK NEGATIVE (NEGATIVE); URINE UROBILINOGEN 0.2 mg/dL (0.2 - 1)
[2023-08-09 08:02] LABS: BACTERIA,URINE MODERATE /HPF; EPITHELIAL CELLS,URINE FEW /LPF; RBC,URINE 0-5 /HPF (0-5); WBC,URINE (MAN) 0-5 /HPF (0-5)
[2023-08-09] MEDS ORDERED: POTASSIUM CHLORIDE 10MEQ EA PO ONE (08:30)
[2023-08-09] MEDS ORDERED: MACROBID 100 M100 MG PO (08:37)
[2023-08-09 09:26] VITALS: BP 127/55; PULSE 80; RESP 16; TEMP 98; O2SAT 100
== END 2023-08-09 09:33 | disposition home or self-care (01) ==
LOC: MERGE 06:05 → ER 06:05
DX: R10.31 Right lower quadrant pain (principal); N39.0 Urinary tract infection, site not specified; R19.7 Diarrhea, unspecified; E87.6 Hypokalemia; I10 Essential (primary) hypertension; E78.5 Hyperlipidemia, unspecified; D64.9 Anemia, unspecified; K21.9 Gastro-esophageal reflux disease without esophagitis; Z20.822 Contact with and (suspected) exposure to COVID-19; Z85.3 Personal history of malignant neoplasm of breast; Z85.038 Personal history of other malignant neoplasm of large intestine
CPT/HCPCS: 0223U; 36415; 74177; 80053; 81001; 82550; 83690; 84484; 85025; 87086; 93005; 99284; J2405; J7121; Q9967

== ENCOUNTER → 2023-09-21 | Outpatient (REF) | payer MEDICARE, OTHER ==
[~2023-09-21] MED LIST changes: +MACROBID 100 M100 MG PO
== END ==
LOC: NM 07:45
PROVIDERS: ATTEND Internal Medicine Gastroenterology
DX: R10.11 Right upper quadrant pain (principal)
CPT/HCPCS: 78227; A9537